=== PATIENT | female | born 1970 | race Caucasian/White ===

== ENCOUNTER 2017-09-02 07:49 | Emergency (ER) | payer BC, OTHER ==
[2017-09-02 07:58] VITALS: BP 170/91
[2017-09-02] MEDS ORDERED: LIDOCAINE VISCOUS 2% PO ONE (10:50)
--- NOTE | 2017-09-02 10:55 | Emergency Department Report ---
ED ENT HPI - General Chief complaint: Sore Throat Stated complaint: SORE THROAT Time Seen by Provider: 09/02/17 10:10 Source: patient Mode of arrival: Ambulatory Limitations: No Limitations - History of Present Illness Initial comments: This is a 47-year-old female nontoxic, well nourished in appearance, no acute signs of distress presents to the ED with c/o of sore throat and body aches x5 days. Patient denies any recent travels. Patient describes pain as aching with level of 8/10. Patient denies any fever, chills, cough, wheezing, headache, stiff neck, drooling, hoarseness, difficult swallowing, chest pain, shortness of breath, difficulty breathing, nausea, vomiting, numbness or tingling. Patient denies any allergies. Past medical history includes hypertension and asthma. MD complaint: sore throat -: days(s) (5) Location: throat Severity: mild Severity scale (0 -10): 8 Quality: aching Consistency: constant Improves with: none Worsens with: swallowing Associated Symptoms: pain with swallowing, sore throat. denies: fever, cough, gum swelling, toothache, tinnitus, hearing loss, discharge from ear, rhinorrhea - Related Data Previous Rx's Medication Instructions Recorded Last Taken Type Lisinopril [Zestril TAB] 20 mg PO QDAY #30 tablet 05/25/13 10/13/14 Rx Acetaminophen with Codeine 1 each PO Q6HR PRN #15 tablet 10/13/14 Unknown Rx [Acetaminophen-Codeine #4 TAB] Lisinopril [Zestril TAB] 40 mg PO QDAY #30 tablet 10/13/14 Unknown Rx Loratadine [Claritin] 10 mg PO DAILY #30 tablet 10/13/14 Unknown Rx Acetaminophen/Codeine [Tylenol #3] 1 tab PO Q6H PRN #15 tab 02/07/15 Unknown Rx Cephalexin [Keflex] 500 mg PO BID #20 capsule 02/07/15 Unknown Rx amLODIPine [Norvasc] 5 mg PO DAILY #30 tab 02/07/15 Unknown Rx Amoxicillin [Amoxicillin TAB] 875 mg PO BID #20 tablet 09/02/17 Unknown Rx Nystas/Diphen/Xyl Visc/Mylanta 15 ml MM Q6H 20 Days udc 09/02/17 Unknown Rx [Magic Mouthwash] Allergies Allergy/AdvReac Type Severity Reaction Status Date / Time No Known Allergies Allergy Verified 09/06/14 12:39 ED Dental HPI - General Chief complaint: Sore Throat Stated complaint: SORE THROAT Time Seen by Provider: 09/02/17 10:10 Source: patient Mode of arrival: Ambulatory Limitations: No Limitations - Related Data Previous Rx's Medication Instructions Recorded Last Taken Type Lisinopril [Zestril TAB] 20 mg PO QDAY #30 tablet 05/25/13 10/13/14 Rx Acetaminophen with Codeine 1 each PO Q6HR PRN #15 tablet 10/13/14 Unknown Rx [Acetaminophen-Codeine #4 TAB] Lisinopril [Zestril TAB] 40 mg PO QDAY #30 tablet 10/13/14 Unknown Rx Loratadine [Claritin] 10 mg PO DAILY #30 tablet 10/13/14 Unknown Rx Acetaminophen/Codeine [Tylenol #3] 1 tab PO Q6H PRN #15 tab 02/07/15 Unknown Rx Cephalexin [Keflex] 500 mg PO BID #20 capsule 02/07/15 Unknown Rx amLODIPine [Norvasc] 5 mg PO DAILY #30 tab 02/07/15 Unknown Rx Amoxicillin [Amoxicillin TAB] 875 mg PO BID #20 tablet 09/02/17 Unknown Rx Nystas/Diphen/Xyl Visc/Mylanta 15 ml MM Q6H 20 Days udc 09/02/17 Unknown Rx [Magic Mouthwash] Allergies Allergy/AdvReac Type Severity Reaction Status Date / Time No Known Allergies Allergy Verified 09/06/14 12:39 ED Review of Systems ROS: Stated complaint: SORE THROAT Other details as noted in HPI Constitutional: denies: chills, fever Eyes: denies: eye pain, eye discharge, vision change ENT: throat pain. denies: ear pain Respiratory: denies: cough, shortness of breath, wheezing Cardiovascular: denies: chest pain, palpitations Endocrine: no symptoms reported Gastrointestinal: denies: abdominal pain, nausea, diarrhea Genitourinary: denies: urgency, dysuria, discharge Musculoskeletal: denies: back pain, joint swelling, arthralgia Skin: denies: rash, lesions Neurological: denies: headache, weakness, paresthesias Psychiatric: denies: anxiety, depression Hematological/Lymphatic: denies: easy bleeding, easy bruising ED Past Medical Hx - Past Medical History Hx Hypertension: Yes Hx Asthma: Yes - Surgical History Past Surgical History?: No Additional Surgical History: rt lumpectomy breast benign - Social History Smoking Status: Never Smoker Substance Use Type: None - Medications Home Medications: Home Medications Medication Instructions Recorded Confirmed Last Taken Type Lisinopril [Zestril TAB] 20 mg PO QDAY #30 tablet 05/25/13 10/13/14 10/13/14 Rx Acetaminophen with Codeine 1 each PO Q6HR PRN #15 tablet 10/13/14 Unknown Rx [Acetaminophen-Codeine #4 TAB] Lisinopril [Zestril TAB] 40 mg PO QDAY #30 tablet 10/13/14 Unknown Rx Loratadine [Claritin] 10 mg PO DAILY #30 tablet 10/13/14 Unknown Rx Acetaminophen/Codeine [Tylenol #3] 1 tab PO Q6H PRN #15 tab 02/07/15 Unknown Rx Cephalexin [Keflex] 500 mg PO BID #20 capsule 02/07/15 Unknown Rx amLODIPine [Norvasc] 5 mg PO DAILY #30 tab 02/07/15 Unknown Rx Amoxicillin [Amoxicillin TAB] 875 mg PO BID #20 tablet 09/02/17 Unknown Rx Nystas/Diphen/Xyl Visc/Mylanta 15 ml MM Q6H 20 Days udc 09/02/17 Unknown Rx [Magic Mouthwash] ED Physical Exam - General Limitations: No Limitations General appearance: alert, in no apparent distress - Head Head exam: Present: atraumatic, normocephalic, normal inspection - Eye Eye exam: Present: normal appearance, PERRL, EOMI. Absent: scleral icterus, conjunctival injection, nystagmus, periorbital swelling, periorbital tenderness Pupils: Present: normal accommodation - ENT ENT exam: Present: mucous membranes moist, TM's normal bilaterally, normal external ear exam - Expanded ENT Exam Expanded Ear exam: Present: normal external inspection Mouth exam: Present: normal external inspection, tongue normal. Absent: drooling, trismus, muffled voice, tongue elevation, laceration Teeth exam: Present: normal inspection Throat exam: Positive: tonsillar erythema, tonsillomegaly (2+), tonsillar exudate, other (No abscess or swelling noted). Negative: R peritonsillar mass, L peritonsillar mass - Neck Neck exam: Present: normal inspection, full ROM. Absent: tenderness, meningismus, lymphadenopathy, thyromegaly - Respiratory Respiratory exam: Present: normal lung sounds bilaterally. Absent: respiratory distress, wheezes, rales, rhonchi, stridor, chest wall tenderness, accessory muscle use, decreased breath sounds, prolonged expiratory - Cardiovascular Cardiovascular Exam: Present: regular rate, normal rhythm, normal heart sounds. Absent: bradycardia, tachycardia, irregular rhythm, systolic murmur, diastolic murmur, rubs, gallop - GI/Abdominal GI/Abdominal exam: Present: soft, normal bowel sounds. Absent: distended, tenderness, guarding, rebound, rigid, diminished bowel sounds - Rectal Rectal exam: Present: deferred - Extremities Exam Extremities exam: Present: normal inspection, full ROM, normal capillary refill. Absent: tenderness, pedal edema, joint swelling, calf tenderness - Back Exam Back exam: Present: normal inspection, full ROM. Absent: tenderness, CVA tenderness (R), CVA tenderness (L), muscle spasm, paraspinal tenderness, vertebral tenderness, rash noted - Neurological Exam Neurological exam: Present: alert, oriented X3, CN II-XII intact, normal gait, reflexes normal - Psychiatric Psychiatric exam: Present: normal affect, normal mood - Skin Skin exam: Present: warm, dry, intact, normal color. Absent: rash ED Course Vital Signs 09/02/17 07:54 Temperature 98.3 F Pulse Rate 87 Respiratory 20 Rate Blood Pressure 170/91 O2 Sat by Pulse 93 Oximetry - Reevaluation(s) Reevaluation #1: 09/02/17 10:54 Patient is speaking in full sentences with no signs of distress noted. ED Medical Decision Making - Medical Decision Making This is a 47-year-old female that presents with tonsillitis with exudate. Patient is stable and was examined by me. CXR obtained prior to my interview and dictated by radiologist with normal exam. There is no signs of abscess or swelling ntoed. Patient received Lidocaine visous in the ED which patient stated symptoms are improving and subsiding. Patient is discharge with amox. Patient was instructed to Follow-up with a primary care doctor in 3-5 days or if symptoms worsen and continue return to emergency room as soon as possible. At time time of discharge, the patient does not seem toxic or ill in appearance. No acute signs of distress noted. Patient agrees to discharge treatment plan of care. No further questions noted by the patient. Critical care attestation.: If time is entered above; I have spent that time in minutes in the direct care of this critically ill patient, excluding procedure time. ED Disposition Clinical Impression: Tonsillitis with exudate Disposition: TO HOME OR SELFCARE Is pt being admited?: No Does the pt Need Aspirin: No Condition: Stable Instructions: Amoxicillin (By mouth), Tonsillitis (ED) Additional Instructions: Follow-up with a primary care doctor in 3-5 days or if symptoms worsen and continue return to emergency room as soon as possible. Prescriptions: Amoxicillin [Amoxicillin TAB] 875 mg PO BID #20 tablet Nystas/Diphen/Xyl Visc/Mylanta [Magic Mouthwash] 15 ml MM Q6H 20 Days [facility] [place] Referrals: KASSI OCAMPO MD [Primary Care Provider] - 3-5 Days ELDON SWEET MD [Staff Physician] - 3-5 Days [facility] [Outside] - 3-5 Days Forms: Work/School Release Form(ED)
--- NOTE | 2017-09-02 11:32 | XRay Report ---
XRAY CHEST TWO VIEWS: 09/02/17 07:49:00 CLINICAL: Cough. COMPARISON: None FINDINGS: Normal heart and pulmonary vasculature. The lungs are normally expanded and clear.The bones and soft tissues are unremarkable. IMPRESSION: Normal chest.
== END 2017-09-02 11:47 | disposition home or self-care (01) ==
LOC: ED 07:49
DX: J03.90 Acute tonsillitis, unspecified (principal); I10 Essential (primary) hypertension; J45.909 Unspecified asthma, uncomplicated
CPT/HCPCS: 71020; 87116; 87400; 87430

== ENCOUNTER 2019-05-25 09:23 | Emergency (ER) | payer OTHER ==
[2019-05-25] MEDS ORDERED: DUONEB *Not for PRN Use IH ONE (09:27)
[2019-05-25] MEDS ORDERED: ATROVENT IH ONE ×2 (09:56→09:59)
[2019-05-25] MEDS ORDERED: PROVENTIL IH ONE ×2 (09:56→09:59)
[2019-05-25] MEDS ORDERED: SOLU-Medrol IV ONE (09:57)
[2019-05-25] MEDS ORDERED: NORVASC PO ONE (09:58)
[2019-05-25] MEDS ORDERED: TORADOL IVP ONE (10:01)
[2019-05-25] MEDS ORDERED: NACL 0.9% 1000 ML 1,000 ML IV ONE (10:01)
--- NOTE | 2019-05-25 10:01 | Emergency Department Report ---
ED General Adult HPI - General Chief complaint: Adult Asthma Stated complaint: CHEST TIGHT/SOB Time Seen by Provider: 05/25/19 09:55 Source: patient Mode of arrival: Ambulatory Limitations: No Limitations - History of Present Illness Initial comments: Patient complains of a cough and shortness of breath for the last couple of days. Patient states that she has asthma and this feels like one of her exacerbations. Patient states she has chest pain with coughing but otherwise no chest pain. On initial presentation the blood pressure is elevated at 228/132. Patient endorses a history of hypertension and states she takes lisinopril for history of hypertension and Marti took her medication this morning. Patient denies yoav chest pain, abdominal pain, headache. -: Gradual, days(s) (2) Location: chest Consistency: constant Improves with: none Worsens with: none Associated Symptoms: denies other symptoms Treatments Prior to Arrival: none - Related Data Previous Rx's Medication Instructions Recorded Last Taken Type Lisinopril [Zestril TAB] 20 mg PO QDAY #30 tablet 05/25/13 10/13/14 Rx Acetaminophen with Codeine 1 each PO Q6HR PRN #15 tablet 10/13/14 Unknown Rx [Acetaminophen-Codeine #4 TAB] Lisinopril [Zestril TAB] 40 mg PO QDAY #30 tablet 10/13/14 Unknown Rx Loratadine [Claritin] 10 mg PO DAILY #30 tablet 10/13/14 Unknown Rx Acetaminophen/Codeine [Tylenol #3] 1 tab PO Q6H PRN #15 tab 02/07/15 Unknown Rx amLODIPine [Norvasc] 5 mg PO DAILY #30 tab 02/07/15 Unknown Rx cephALEXin [Keflex] 500 mg PO BID #20 capsule 02/07/15 Unknown Rx Amoxicillin [Amoxicillin TAB] 875 mg PO BID #20 tablet 09/02/17 Unknown Rx Nystas/Diphen/Xyl Visc/Mylanta 15 ml MM Q6H 20 Days udc 09/02/17 Unknown Rx [Magic Mouthwash] ALBUTEROL Inhaler (OR & NICU) 2 puff IH Q4HR PRN #1 inhalation 05/25/19 Unknown Rx [ProAir HFA Inhaler] Albuterol Sulfate [Albuterol 0.63% 0.63 mg IH Q4HR PRN #30 ml 05/25/19 Unknown Rx NEBS] Benzonatate [Tessalon Perles] 100 mg PO Q8HR PRN #20 capsule 05/25/19 Unknown Rx Codeine Phosphate/Guaifenesin 180 ml PO Q12HR PRN #180 liquid 05/25/19 Unknown Rx [Guaifenesin-Codeine Syrup] Naproxen [Naprosyn] 500 mg PO BID PRN #20 tablet 05/25/19 Unknown Rx Nebulizer [Truneb Nebulizer] 1 each MC Q4HR #1 each 05/25/19 Unknown Rx Allergies Allergy/AdvReac Type Severity Reaction Status Date / Time No Known Allergies Allergy Verified 09/06/14 12:39 ED Review of Systems ROS: Stated complaint: CHEST TIGHT/SOB Other details as noted in HPI Comment: All other systems reviewed and negative Constitutional: denies: chills, fever Eyes: denies: eye pain, eye discharge, vision change ENT: denies: ear pain, throat pain Respiratory: shortness of breath. denies: cough, wheezing Cardiovascular: denies: chest pain, palpitations Endocrine: no symptoms reported Gastrointestinal: denies: abdominal pain, nausea, diarrhea Genitourinary: denies: urgency, dysuria, discharge Musculoskeletal: denies: back pain, joint swelling, arthralgia Skin: denies: rash, lesions Neurological: denies: headache, weakness, paresthesias Psychiatric: denies: anxiety, depression Hematological/Lymphatic: denies: easy bleeding, easy bruising ED Past Medical Hx - Past Medical History Previous Medical History?: Yes Hx Hypertension: Yes Hx Asthma: Yes - Surgical History Past Surgical History?: Yes Additional Surgical History: Right lumpectomy breast benign - Social History Smoking Status: Never Smoker Substance Use Type: None - Medications Home Medications: Home Medications Medication Instructions Recorded Confirmed Last Taken Type Lisinopril [Zestril TAB] 20 mg PO QDAY #30 tablet 05/25/13 10/13/14 10/13/14 Rx Acetaminophen with Codeine 1 each PO Q6HR PRN #15 tablet 10/13/14 Unknown Rx [Acetaminophen-Codeine #4 TAB] Lisinopril [Zestril TAB] 40 mg PO QDAY #30 tablet 10/13/14 Unknown Rx Loratadine [Claritin] 10 mg PO DAILY #30 tablet 10/13/14 Unknown Rx Acetaminophen/Codeine [Tylenol #3] 1 tab PO Q6H PRN #15 tab 02/07/15 Unknown Rx amLODIPine [Norvasc] 5 mg PO DAILY #30 tab 02/07/15 Unknown Rx cephALEXin [Keflex] 500 mg PO BID #20 capsule 02/07/15 Unknown Rx Amoxicillin [Amoxicillin TAB] 875 mg PO BID #20 tablet 09/02/17 Unknown Rx Nystas/Diphen/Xyl Visc/Mylanta 15 ml MM Q6H 20 Days udc 09/02/17 Unknown Rx [Magic Mouthwash] ALBUTEROL Inhaler (OR & NICU) 2 puff IH Q4HR PRN #1 inhalation 05/25/19 Unknown Rx [ProAir HFA Inhaler] Albuterol Sulfate [Albuterol 0.63% 0.63 mg IH Q4HR PRN #30 ml 05/25/19 Unknown Rx NEBS] Benzonatate [Tessalon Perles] 100 mg PO Q8HR PRN #20 capsule 05/25/19 Unknown Rx Codeine Phosphate/Guaifenesin 180 ml PO Q12HR PRN #180 liquid 05/25/19 Unknown Rx [Guaifenesin-Codeine Syrup] Naproxen [Naprosyn] 500 mg PO BID PRN #20 tablet 05/25/19 Unknown Rx Nebulizer [Truneb Nebulizer] 1 each MC Q4HR #1 each 05/25/19 Unknown Rx ED Physical Exam - General Limitations: No Limitations General appearance: alert, in no apparent distress - Head Head exam: Present: atraumatic, normocephalic - Eye Eye exam: Present: normal appearance, PERRL, EOMI - ENT ENT exam: Present: mucous membranes moist - Neck Neck exam: Present: normal inspection - Respiratory Respiratory exam: Present: respiratory distress (mild respiratory distress with diminished breath sounds throughout) - Cardiovascular Cardiovascular Exam: Present: regular rate, normal rhythm. Absent: systolic murmur, diastolic murmur, rubs, gallop - GI/Abdominal GI/Abdominal exam: Present: soft, normal bowel sounds. Absent: distended, tenderness - Extremities Exam Extremities exam: Present: normal inspection - Back Exam Back exam: Present: normal inspection - Neurological Exam Neurological exam: Present: alert, oriented X3, CN II-XII intact. Absent: motor sensory deficit - Psychiatric Psychiatric exam: Present: normal affect, normal mood - Skin Skin exam: Present: warm, dry, intact, normal color. Absent: rash ED Course Vital Signs 05/25/19 05/25/19 05/25/19 09:28 09:58 10:31 Temperature 98.4 F Pulse Rate 89 95 H Pulse Rate [ 86 Posterior Bilateral Throughout] Respiratory 24 20 Rate Respiratory 22 Rate [Posterior Bilateral Throughout] Blood Pressure 228/132 196/111 Blood Pressure [Left] O2 Sat by Pulse 94 98 Oximetry 05/25/19 05/25/19 05/25/19 10:36 10:40 10:46 Temperature Pulse Rate 88 93 H 97 H Pulse Rate [ Posterior Bilateral Throughout] Respiratory 20 19 20 Rate Respiratory Rate [Posterior Bilateral Throughout] Blood Pressure 196/111 196/111 196/111 Blood Pressure [Left] O2 Sat by Pulse 100 100 99 Oximetry 05/25/19 05/25/19 05/25/19 10:50 10:56 11:00 Temperature Pulse Rate 94 H 96 H 100 H Pulse Rate [ Posterior Bilateral Throughout] Respiratory 20 18 19 Rate Respiratory Rate [Posterior Bilateral Throughout] Blood Pressure 196/111 196/111 196/111 Blood Pressure [Left] O2 Sat by Pulse 99 100 100 Oximetry 05/25/19 05/25/19 05/25/19 11:06 11:07 11:12 Temperature Pulse Rate 100 H 99 H Pulse Rate [ 110 H Posterior Bilateral Throughout] Respiratory 25 H 20 Rate Respiratory 20 Rate [Posterior Bilateral Throughout] Blood Pressure 198/105 Blood Pressure 198/105 [Left] O2 Sat by Pulse 99 Oximetry 05/25/19 05/25/19 11:20 11:30 Temperature Pulse Rate 107 H 107 H Pulse Rate [ Posterior Bilateral Throughout] Respiratory 22 24 Rate Respiratory Rate [Posterior Bilateral Throughout] Blood Pressure 198/105 198/105 Blood Pressure [Left] O2 Sat by Pulse 95 92 Oximetry ED Medical Decision Making - Lab Data Result diagrams: 05/25/19 10:02 05/25/19 10:02 Lab Results 05/25/19 05/25/19 Range/Units 10:02 10:02 WBC 6.1 (4.5-11.0) K/mm3 RBC 4.81 (3.65-5.03) M/mm3 Hgb 14.0 (10.1-14.3) gm/dl Hct 41.1 (30.3-42.9) % MCV 86 (79-97) fl MCH 29 (28-32) pg MCHC 34 (30-34) % RDW 14.8 (13.2-15.2) % Plt Count 335 (140-440) K/mm3 Lymph % (Auto) 50.7 H (13.4-35.0) % Coke % (Auto) 8.1 H (0.0-7.3) % Eos % (Auto) 2.2 (0.0-4.3) % Baso % (Auto) 0.8 (0.0-1.8) % Lymph # 3.1 (1.2-5.4) K/mm3 Coke # 0.5 (0.0-0.8) K/mm3 Eos # 0.1 (0.0-0.4) K/mm3 Baso # 0.1 (0.0-0.1) K/mm3 Seg Neutrophils % 38.2 L (40.0-70.0) % Seg Neutrophils # 2.3 (1.8-7.7) K/mm3 Sodium 138 (137-145) mmol/L Potassium 3.3 L (3.6-5.0) mmol/L Chloride 99.6 (98-107) mmol/L Carbon Dioxide 27 (22-30) mmol/L Anion Gap 15 mmol/L BUN 15 (7-17) mg/dL Creatinine 0.8 (0.7-1.2) mg/dL Estimated GFR > 60 ml/min BUN/Creatinine Ratio 19 % Glucose 107 H (65-100) mg/dL Calcium 9.3 (8.4-10.2) mg/dL - Radiology Data Radiology results: report reviewed - Medical Decision Making Patient improved dramatically after a standard DuoNeb breathing treatment and a continuous 1 hour treatment with IV magnesium and steroids. Critical Care Time: Yes Critical care time in (mins) excluding proc time.: 35 Critical care attestation.: If time is entered above; I have spent that time in minutes in the direct care of this critically ill patient, excluding procedure time. ED Disposition Clinical Impression: Asthma, Asthma attack Disposition: DC-01 TO HOME OR SELFCARE Is pt being admited?: No Does the pt Need Aspirin: No Condition: Stable Instructions: Asthma (ED) Additional Instructions: return if worse Prescriptions: Albuterol Sulfate [Albuterol 0.63% NEBS] 0.63 mg IH Q4HR PRN #30 ml PRN Reason: Wheezing Codeine Phosphate/Guaifenesin [Guaifenesin-Codeine Syrup] 180 ml PO Q12HR PRN #180 liquid PRN Reason: pain Naproxen [Naprosyn] 500 mg PO BID PRN #20 tablet PRN Reason: pain ALBUTEROL Inhaler (OR & NICU) [ProAir HFA Inhaler] 2 puff IH Q4HR PRN #1 inhalation PRN Reason: Shortness Of Breath Benzonatate [Tessalon Perles] 100 mg PO Q8HR PRN #20 capsule PRN Reason: Cough Nebulizer [Truneb Nebulizer] 1 each MC Q4HR #1 each Referrals: ASIM WOODS MD [Primary Care Provider] - 3-5 Days [facility] [Provider Group] - 3-5 Days [facility] [Provider Group] - 3-5 Days Time of Disposition: 12:49
[2019-05-25 10:20] LABS: Basophils # (Auto) 0.1 K/mm3 (0.0-0.1); Basophils % (Auto) 0.8 % (0.0-1.8); Eosinophils # (Auto) 0.1 K/mm3 (0.0-0.4); Eosinophils % (Auto) 2.2 % (0.0-4.3); Hematocrit 41.1 % (30.3-42.9); Lymphocytes # (Auto) 3.1 K/mm3 (1.2-5.4); Lymphocytes % (Auto) 50.7 % (13.4-35.0); Mean Corpuscular HGB Conc 34 % (30-34); Mean Corpuscular Volume 86 fl (79-97); Monocytes # (Auto) 0.5 K/mm3 (0.0-0.8); Monocytes % (Auto) 8.1 % (0.0-7.3); Platelet Count 335 K/mm3 (140-440); Red Blood Count 4.81 M/mm3 (3.65-5.03); Red Cell Distribution Width 14.8 % (13.2-15.2)
[2019-05-25 10:30] LABS: BUN/Creatinine Ratio 19; Blood Urea Nitrogen 15 mg/dL (7-17); Calcium 9.3 mg/dL (8.4-10.2); Hemolysis Index 5
[2019-05-25] MEDS ORDERED: MAGNESIUM SULFATE 1 GM in NACL 0.9% 50 ML IV ONE (11:00)
[2019-05-25 11:08] VITALS: BP 198/105
[2019-05-25] MEDS ORDERED: MAGNESIUM SULFATE 2GM/50ML 2 GM/50 ML BAG IV ONE ×2 (11:11→11:12)
--- NOTE | 2019-05-25 11:14 | XRay Report ---
CHEST 1 VIEW, 05/25/2019 10:14 AM CLINICAL INFORMATION/INDICATION: Cough COMPARISON: Chest radiograph, 09/02/2017 FINDINGS: SUPPORT DEVICES: None HEART: The cardiac silhouette is normal in size. LUNGS/PLEURA: There is no focal airspace disease or significant pleural effusion. ADDITIONAL FINDINGS: No additional acute findings. IMPRESSION: 1. No evidence of acute cardiopulmonary process. Signer Name: Laina Bejarano MD Signed: 05/25/2019 11:09 AM Workstation Name: [id number]
[2019-05-25] MEDS ORDERED: ROBITUSSIN AC PO PRN (11:27)
== END 2019-05-25 13:15 | disposition home or self-care (01) ==
LOC: ED 09:23
DX: J45.909 Unspecified asthma, uncomplicated (principal); I10 Essential (primary) hypertension; Z90.11 Acquired absence of right breast and nipple; Z79.899 Other long term (current) drug therapy
CPT/HCPCS: 36415; 71045; 80048; 85025; 94640; 96365; 96375; 99291; J1885; J2930; J3475; J7030; 94644

== ENCOUNTER 2019-07-20 12:05 | Emergency (ER) | payer OTHER ==
--- NOTE | 2019-07-20 12:11 | Emergency Department Report ---
Blank Doc - Documentation Documentation: 48-year-old female that presents with right ankle pain. Denies any other inju diana or pain. This initial assessment/diagnostic orders/clinical plan/treatment(s) is/are subject to change based on patient's health status, clinical progression and re- assessment by fellow clinical providers in the ED. Further treatment and workup at subsequent clinical providers discretion. Patient/guardians urged not to elope from the ED as their condition may be serious if not clinically assessed and managed. Initial orders include: 1- Patient sent to [facility] for further evaluation and treatment 2- xrays
--- NOTE | 2019-07-20 12:46 | XRay Report ---
EXAMINATION: Right ankle radiograph, 3 views, 07/20/2019 CLINICAL INFORMATION: Right ankle pain after trauma COMPARISON: None. FINDINGS: There is mild generalized soft tissue swelling of the right ankle without evidence of acute fracture or dislocation. Signer Name: Laina Bejarano MD Signed: 07/20/2019 12:42 PM Workstation Name: [id number]
[2019-07-20] MEDS ORDERED: IBUPROFEN 800 MG TAB PO ONE (13:08)
--- NOTE | 2019-07-20 13:10 | Emergency Department Report ---
ED Lower Extremity HPI - General Chief Complaint: Extremity Injury, Lower Stated Complaint: RT ANKLE FALL INJURY/PAIN Time Seen by Provider: 07/20/19 12:10 Source: patient Mode of arrival: Wheelchair Limitations: No Limitations - History of Present Illness Initial Comments: 48-year-old female presents to ED with right ankle pain. Patient states she sli pped and fell on the grass. States she felt something pop in her right ankle. MD Complaint: ankle injury -: This afternoon Injury: Ankle: Right Severity: moderate Improves With: immobilization Worsens With: weight bearing Context: fall Associated Symptoms: snap/pop sensation, swelling, unable to bear weight - Related Data Previous Rx's Medication Instructions Recorded Last Taken Type Lisinopril [Zestril TAB] 20 mg PO QDAY #30 tablet 05/25/13 10/13/14 Rx Acetaminophen with Codeine 1 each PO Q6HR PRN #15 tablet 10/13/14 Unknown Rx [Acetaminophen-Codeine #4 TAB] Lisinopril [Zestril TAB] 40 mg PO QDAY #30 tablet 10/13/14 Unknown Rx Loratadine [Claritin] 10 mg PO DAILY #30 tablet 10/13/14 Unknown Rx Acetaminophen/Codeine [Tylenol #3] 1 tab PO Q6H PRN #15 tab 02/07/15 Unknown Rx amLODIPine 5 mg PO DAILY #30 tab 02/07/15 Unknown Rx cephALEXin [Keflex] 500 mg PO BID #20 capsule 02/07/15 Unknown Rx Amoxicillin [Amoxicillin TAB] 875 mg PO BID #20 tablet 09/02/17 Unknown Rx Nystas/Diphen/Xyl Visc/Mylanta 15 ml MM Q6H 20 Days udc 09/02/17 Unknown Rx [Magic Mouthwash] ALBUTEROL Inhaler (OR & NICU) 2 puff IH Q4HR PRN #1 inhalation 05/25/19 Unknown Rx [ProAir HFA Inhaler] Albuterol Sulfate [Albuterol 0.63% 0.63 mg IH Q4HR PRN #30 ml 05/25/19 Unknown Rx NEBS] Benzonatate [Tessalon Perles] 100 mg PO Q8HR PRN #20 capsule 05/25/19 Unknown Rx Codeine Phosphate/Guaifenesin 180 ml PO Q12HR PRN #180 liquid 05/25/19 Unknown Rx [Guaifenesin-Codeine Syrup] Naproxen [Naprosyn] 500 mg PO BID PRN #20 tablet 05/25/19 Unknown Rx Nebulizer [Truneb Nebulizer] 1 each MC Q4HR #1 each 05/25/19 Unknown Rx predniSONE [Deltasone] 20 mg PO DAILY #15 tablet 05/25/19 Unknown Rx Naproxen [Naprosyn] 500 mg PO BID #20 tablet 07/20/19 Unknown Rx traMADol [Ultram] 50 mg PO Q6HR PRN #7 tablet 07/20/19 Unknown Rx Allergies Allergy/AdvReac Type Severity Reaction Status Date / Time No Known Allergies Allergy Verified 07/20/19 12:06 ED Review of Systems ROS: Stated complaint: RT ANKLE FALL INJURY/PAIN Other details as noted in HPI Comment: All other systems reviewed and negative Musculoskeletal: as per HPI Neurological: denies: numbness, paresthesias ED Past Medical Hx - Past Medical History Hx Hypertension: Yes Hx Asthma: Yes - Surgical History Additional Surgical History: Right lumpectomy breast benign - Social History Smoking Status: Never Smoker Substance Use Type: None - Medications Home Medications: Home Medications Medication Instructions Recorded Confirmed Last Taken Type Lisinopril [Zestril TAB] 20 mg PO QDAY #30 tablet 05/25/13 10/13/14 10/13/14 Rx Acetaminophen with Codeine 1 each PO Q6HR PRN #15 tablet 10/13/14 Unknown Rx [Acetaminophen-Codeine #4 TAB] Lisinopril [Zestril TAB] 40 mg PO QDAY #30 tablet 10/13/14 Unknown Rx Loratadine [Claritin] 10 mg PO DAILY #30 tablet 10/13/14 Unknown Rx Acetaminophen/Codeine [Tylenol #3] 1 tab PO Q6H PRN #15 tab 02/07/15 Unknown Rx amLODIPine 5 mg PO DAILY #30 tab 02/07/15 Unknown Rx cephALEXin [Keflex] 500 mg PO BID #20 capsule 02/07/15 Unknown Rx Amoxicillin [Amoxicillin TAB] 875 mg PO BID #20 tablet 09/02/17 Unknown Rx Nystas/Diphen/Xyl Visc/Mylanta 15 ml MM Q6H 20 Days udc 09/02/17 Unknown Rx [Magic Mouthwash] ALBUTEROL Inhaler (OR & NICU) 2 puff IH Q4HR PRN #1 inhalation 05/25/19 Unknown Rx [ProAir HFA Inhaler] Albuterol Sulfate [Albuterol 0.63% 0.63 mg IH Q4HR PRN #30 ml 05/25/19 Unknown Rx NEBS] Benzonatate [Tessalon Perles] 100 mg PO Q8HR PRN #20 capsule 05/25/19 Unknown Rx Codeine Phosphate/Guaifenesin 180 ml PO Q12HR PRN #180 liquid 05/25/19 Unknown Rx [Guaifenesin-Codeine Syrup] Naproxen [Naprosyn] 500 mg PO BID PRN #20 tablet 05/25/19 Unknown Rx Nebulizer [Truneb Nebulizer] 1 each MC Q4HR #1 each 05/25/19 Unknown Rx predniSONE [Deltasone] 20 mg PO DAILY #15 tablet 05/25/19 Unknown Rx Naproxen [Naprosyn] 500 mg PO BID #20 tablet 07/20/19 Unknown Rx traMADol [Ultram] 50 mg PO Q6HR PRN #7 tablet 07/20/19 Unknown Rx ED Physical Exam - General Limitations: No Limitations General appearance: alert, in no apparent distress, obese - Head Head exam: Present: atraumatic, normocephalic - Eye Eye exam: Present: normal appearance - ENT ENT exam: Present: mucous membranes moist - Neck Neck exam: Present: normal inspection - Respiratory Respiratory exam: Present: normal lung sounds bilaterally. Absent: respiratory distress - Cardiovascular Cardiovascular Exam: Present: regular rate, normal rhythm - GI/Abdominal GI/Abdominal exam: Absent: distended - Extremities Exam Extremities exam: Present: normal capillary refill, other (slight bruising to the anterior right lower leg; moderate swelling to the right ankle, with medial and lateral tenderness, patient able to move toes, DP pulses intact) - Neurological Exam Neurological exam: Present: alert, oriented X3. Absent: motor sensory deficit - Psychiatric Psychiatric exam: Present: normal affect, normal mood - Skin Skin exam: Present: warm, dry, intact, normal color ED Course Vital Signs 07/20/19 12:11 Temperature 97.7 F Pulse Rate 94 H Respiratory 18 Rate Blood Pressure 180/93 O2 Sat by Pulse 95 Oximetry ED Lower Extremity MDM - Radiology Data Radiology results: report reviewed, image reviewed - Differential Diagnosis fracture, sprain Critical care attestation.: If time is entered above; I have spent that time in minutes in the direct care of this critically ill patient, excluding procedure time. ED Disposition Clinical Impression: Right ankle sprain Disposition: TO HOME OR SELFCARE Is pt being admited?: No Condition: Stable Instructions: Ankle Sprain (ED), Ankle Stirrup Splint (ED) Prescriptions: Naproxen [Naprosyn] 500 mg PO BID #20 tablet traMADol [Ultram] 50 mg PO Q6HR PRN #7 tablet PRN Reason: Pain Referrals: ASHISH SPARKS MD [Staff Physician] - 3-5 Days Time of Disposition: 13:10
[2019-07-20 14:07] VITALS: BP 159/82
== END 2019-07-20 14:09 | disposition home or self-care (01) ==
LOC: ED 12:05
DX: S93.401A Sprain of unspecified ligament of right ankle, initial encounter (principal); I10 Essential (primary) hypertension; J45.909 Unspecified asthma, uncomplicated; Z79.899 Other long term (current) drug therapy; W01.198A Fall on same level from slipping, tripping and stumbling with subsequent striking against other object, initial encounter; Y93.89 Activity, other specified; Y92.89 Other specified places as the place of occurrence of the external cause; Y99.8 Other external cause status

== ENCOUNTER 2021-06-25 08:51 | Emergency (ER) | payer SELFPAY ==
[2021-06-25] MEDS ORDERED: MORPHINE 2 MG/1 ML INJ IV ONE (09:05)
[2021-06-25] MEDS ORDERED: ONDANSETRON 4 MG/2 ML INJ IV ONE (09:05)
--- NOTE | 2021-06-25 09:15 | Emergency Department Report ---
ED Abdominal Pain HPI - General Chief Complaint: Abdominal Pain Stated Complaint: ABD PAIN Time Seen by Provider: 06/25/21 09:05 Source: patient Mode of arrival: Ambulatory Limitations: No Limitations - History of Present Illness Initial Comments: 50-year-old female, history of hypertension, presents to ED with abdominal pain x2 days. Patient reports one episode of associated emesis. She denies any fever or diarrhea. Patient states pain is stabbing in nature, located in the epigastric area and radiating around to the rest of the abdomen. She denies any sick contacts. MD Complaint: abdominal pain -: days(s) (2) Location: epigastric Radiation: other (Diffusely) Migration to: no migration Severity: moderate Quality: stabbing Consistency: constant Improves With: nothing Worsens With: nothing Associated Symptoms: nausea, vomiting. denies: diarrhea, fever, constipation - Related Data Previous Rx's Medication Instructions Recorded Last Taken Type lisinopriL [Zestril TAB] 20 mg PO QDAY #30 tablet 05/25/13 10/13/14 Rx Acetaminophen with Codeine 1 each PO Q6HR PRN #15 tablet 10/13/14 Unknown Rx [Acetaminophen-Codeine #4 TAB] Loratadine (Nf) [Claritin (Nf)] 10 mg PO DAILY #30 tablet 10/13/14 Unknown Rx lisinopriL [Zestril TAB] 40 mg PO QDAY #30 tablet 10/13/14 Unknown Rx Acetaminophen/Codeine [Tylenol #3] 1 tab PO Q6H PRN #15 tab 02/07/15 Unknown Rx amLODIPine 5 mg PO DAILY #30 tab 02/07/15 Unknown Rx cephALEXin [Keflex] 500 mg PO BID #20 capsule 02/07/15 Unknown Rx Amoxicillin [Amoxicillin TAB] 875 mg PO BID #20 tablet 09/02/17 Unknown Rx Nystas/Diphen/Xyl Visc/Mylanta 15 ml MM Q6H 20 Days udc 09/02/17 Unknown Rx [Magic Mouthwash] Albuterol Mdi (or & Nicu Only) 2 puff IH Q4HR PRN #1 inhalation 05/25/19 Unknown Rx [ProAir HFA Inhaler] Albuterol Sulfate [Albuterol 0.63% 0.63 mg IH Q4HR PRN #30 ml 05/25/19 Unknown Rx NEBS] Benzonatate [Tessalon Perles] 100 mg PO Q8HR PRN #20 capsule 05/25/19 Unknown Rx Codeine Phosphate/Guaifenesin 180 ml PO Q12HR PRN #180 liquid 05/25/19 Unknown Rx [Guaifenesin-Codeine Syrup] Naproxen [Naprosyn] 500 mg PO BID PRN #20 tablet 05/25/19 Unknown Rx Nebulizer [Truneb Nebulizer] 1 each MC Q4HR #1 each 05/25/19 Unknown Rx predniSONE [Deltasone] 20 mg PO DAILY #15 tablet 05/25/19 Unknown Rx Naproxen [Naprosyn] 500 mg PO BID #20 tablet 07/20/19 Unknown Rx traMADoL [Ultram] 50 mg PO Q6HR PRN #7 tablet 07/20/19 Unknown Rx Ciprofloxacin HCl 500 mg PO BID #20 tablet 06/25/21 Unknown Rx Dicyclomine [Bentyl] 20 mg PO QID PRN #20 tablet 06/25/21 Unknown Rx Naproxen [Naprosyn] 500 mg PO BID #20 tablet 06/25/21 Unknown Rx metroNIDAZOLE [Flagyl] 500 mg PO Q12HR #20 tab 06/25/21 Unknown Rx traMADoL [Ultram] 50 mg PO Q6HR PRN #7 tablet 06/25/21 Unknown Rx Allergies Allergy/AdvReac Type Severity Reaction Status Date / Time No Known Allergies Allergy Verified 07/20/19 12:06 ED Review of Systems ROS: Stated complaint: ABD PAIN Other details as noted in HPI Comment: All other systems reviewed and negative Constitutional: denies: chills, fever Gastrointestinal: abdominal pain, nausea, vomiting. denies: diarrhea, constipation ED Past Medical Hx - Past Medical History Previous Medical History?: Yes Hx Hypertension: Yes Hx Asthma: Yes - Surgical History Past Surgical History?: Yes Additional Surgical History: Right lumpectomy breast benign - Social History Smoking Status: Never Smoker Substance Use Type: None - Medications Home Medications: Home Medications Medication Instructions Recorded Confirmed Last Taken Type lisinopriL [Zestril TAB] 20 mg PO QDAY #30 tablet 05/25/13 10/13/14 10/13/14 Rx Acetaminophen with Codeine 1 each PO Q6HR PRN #15 tablet 10/13/14 Unknown Rx [Acetaminophen-Codeine #4 TAB] Loratadine (Nf) [Claritin (Nf)] 10 mg PO DAILY #30 tablet 10/13/14 Unknown Rx lisinopriL [Zestril TAB] 40 mg PO QDAY #30 tablet 10/13/14 Unknown Rx Acetaminophen/Codeine [Tylenol #3] 1 tab PO Q6H PRN #15 tab 02/07/15 Unknown Rx amLODIPine 5 mg PO DAILY #30 tab 02/07/15 Unknown Rx cephALEXin [Keflex] 500 mg PO BID #20 capsule 02/07/15 Unknown Rx Amoxicillin [Amoxicillin TAB] 875 mg PO BID #20 tablet 09/02/17 Unknown Rx Nystas/Diphen/Xyl Visc/Mylanta 15 ml MM Q6H 20 Days udc 09/02/17 Unknown Rx [Magic Mouthwash] Albuterol Mdi (or & Nicu Only) 2 puff IH Q4HR PRN #1 inhalation 05/25/19 Unknown Rx [ProAir HFA Inhaler] Albuterol Sulfate [Albuterol 0.63% 0.63 mg IH Q4HR PRN #30 ml 05/25/19 Unknown Rx NEBS] Benzonatate [Tessalon Perles] 100 mg PO Q8HR PRN #20 capsule 05/25/19 Unknown Rx Codeine Phosphate/Guaifenesin 180 ml PO Q12HR PRN #180 liquid 05/25/19 Unknown Rx [Guaifenesin-Codeine Syrup] Naproxen [Naprosyn] 500 mg PO BID PRN #20 tablet 05/25/19 Unknown Rx Nebulizer [Truneb Nebulizer] 1 each MC Q4HR #1 each 05/25/19 Unknown Rx predniSONE [Deltasone] 20 mg PO DAILY #15 tablet 05/25/19 Unknown Rx Naproxen [Naprosyn] 500 mg PO BID #20 tablet 07/20/19 Unknown Rx traMADoL [Ultram] 50 mg PO Q6HR PRN #7 tablet 07/20/19 Unknown Rx Ciprofloxacin HCl 500 mg PO BID #20 tablet 06/25/21 Unknown Rx Dicyclomine [Bentyl] 20 mg PO QID PRN #20 tablet 06/25/21 Unknown Rx Naproxen [Naprosyn] 500 mg PO BID #20 tablet 06/25/21 Unknown Rx metroNIDAZOLE [Flagyl] 500 mg PO Q12HR #20 tab 06/25/21 Unknown Rx traMADoL [Ultram] 50 mg PO Q6HR PRN #7 tablet 06/25/21 Unknown Rx ED Physical Exam - General Limitations: No Limitations General appearance: alert, in no apparent distress, obese - Head Head exam: Present: atraumatic, normocephalic - Eye Eye exam: Present: normal appearance - ENT ENT exam: Present: mucous membranes moist - Neck Neck exam: Present: normal inspection - Respiratory Respiratory exam: Present: normal lung sounds bilaterally. Absent: respiratory distress - Cardiovascular Cardiovascular Exam: Present: regular rate, normal rhythm - GI/Abdominal GI/Abdominal exam: Present: soft, tenderness (Mild diffuse, worse in the epigastric and LLQ). Absent: distended - Extremities Exam Extremities exam: Present: normal inspection - Neurological Exam Neurological exam: Present: alert, oriented X3 - Psychiatric Psychiatric exam: Present: normal affect, normal mood - Skin Skin exam: Present: warm, dry, intact, normal color ED Course Vital Signs 06/25/21 06/25/21 06/25/21 08:54 09:28 09:42 Temperature 98.0 F Pulse Rate 94 H Respiratory 18 16 18 Rate Blood Pressure 194/100 Blood Pressure [Right] O2 Sat by Pulse 96 99 Oximetry 06/25/21 06/25/21 06/25/21 11:06 11:14 12:02 Temperature 98.9 F 98.0 F Pulse Rate 65 65 67 Respiratory 20 20 16 Rate Blood Pressure 150/77 Blood Pressure 150/77 138/78 [Right] O2 Sat by Pulse 100 100 97 Oximetry - Reevaluation(s) Reevaluation #1: 06/25/21 10:30 RBCs present in patient's UA. Patient reports her period went off last week, but she has been having symptoms nodding off and on since then. ED Medical Decision Making - Lab Data Result diagrams: 06/25/21 09:11 06/25/21 10:21 - EKG Data -: EKG Interpreted by Me EKG shows normal: sinus rhythm, axis, intervals, QRS complexes, ST-T waves Rate: normal - EKG Data Interpretation: no acute changes - Radiology Data Radiology results: report reviewed, image reviewed - Medical Decision Making 50-year-old female presents to ED with abdominal pain. Patient afebrile, WBC is normal. Remainder of labs are unremarkable except mildly elevated AST. Patient initially hypertensive, however vitals improved following pain control. CT scan shows acute diverticulitis without any evidence of abscess or perforation. Patient feels comfortable with discharge at this time. Will discharge with prescription for Cipro and Flagyl. Outpatient follow-up advised with GI. Return precautions given. - Differential Diagnosis Pancreatitis, gastroenteritis, bowel obstruction Critical care attestation.: If time is entered above; I have spent that time in minutes in the direct care of this critically ill patient, excluding procedure time. ED Disposition Clinical Impression: Acute diverticulitis Disposition: HOME / SELF CARE / HOMELESS Is pt being admited?: No Condition: Stable Instructions: Diverticulitis, [id number], Abdominal Pain (ED) Prescriptions: Dicyclomine [Bentyl] 20 mg PO QID PRN #20 tablet PRN Reason: abdominal pain Ciprofloxacin HCl 500 mg PO BID #20 tablet metroNIDAZOLE [Flagyl] 500 mg PO Q12HR #20 tab Naproxen [Naprosyn] 500 mg PO BID #20 tablet traMADoL [Ultram] 50 mg PO Q6HR PRN #7 tablet PRN Reason: Pain Referrals: PRIMARY CARE, [Primary Care Provider] - 3-5 Days [facility] [Provider Group] - 3-5 Days Forms: Work/School Release Form(ED) Time of Disposition: 11:42
[2021-06-25 09:22] LABS: Basophils # (Auto) 0.1 K/mm3 (0.0-0.1); Basophils % (Auto) 0.8 % (0.0-1.8); Eosinophils # (Auto) 0.1 K/mm3 (0.0-0.4); Eosinophils % (Auto) 0.7 % (0.0-4.3); Hematocrit 38.3 % (30.3-42.9); Hemoglobin 13.7 gm/dl (10.1-14.3); Lymphocytes # (Auto) 2.4 K/mm3 (1.2-5.4); Lymphocytes % (Auto) 31.2 % (13.4-35.0); Mean Corpuscular HGB Conc 36 % (30-34); Mean Corpuscular Volume 80 fl (79-97); Monocytes # (Auto) 0.5 K/mm3 (0.0-0.8); Platelet Count 488 K/mm3 (140-440); Red Blood Count 4.76 M/mm3 (3.65-5.03); Red Cell Distribution Width 17.6 % (13.2-15.2)
[2021-06-25 09:31] LABS: Bilirubin,Urine NEG (Negative); Blood,Urine LG (Negative); Color,Urine Yellow (Yellow); Mucus,Urine 2+ /HPF; Protein,Urine <15 mg/dL mg/dL (Negative); Urobilinogen,Urine < 2.0 mg/dL (<2.0)
[2021-06-25 09:45] LABS: Bilirubin,Direct 0.5 mg/dL (0-0.2); Blood Urea Nitrogen 8 mg/dL (7-17); Calcium 8.8 mg/dL (8.4-10.2); Hemolysis Index 1282
[2021-06-25 09:53] LABS: BUN/Creatinine Ratio 11
[2021-06-25 10:22] LABS: Alanine Aminotransferase < 5 units/L (7-56)
--- NOTE | 2021-06-25 10:34 | Cat Scan Report ---
CT ABDOMEN AND PELVIS WITH IV CONTRAST INDICATION: epigastric pain. COMPARISON: None available. TECHNIQUE: All CT scans at this facility use dose modulation, automated exposure control, iterative reconstructi on or weight based dosing, when appropriate, to reduce radiation dose to as low as reasonably achieva ble. FINDINGS: Lung Bases: No significant abnormality. Skeletal System: No acute abnormality. ABDOMEN: Liver: No significant abnormality. Gallbladder: No significant abnormality. Bile Ducts: No significant abnormality. Pancreas: No significant abnormality. Spleen: No significant abnormality. Adrenals: No significant abnormality. Right Kidney: No significant abnormality. Left Kidney: No significant abnormality. Upper GI tract: No significant abnormality. Lymph Nodes: No significant adenopathy. Aorta: No significant abnormality. Additional Findings: No significant abnormality. PELVIS: Colon: There is focal inflammation in the region of mid sigmoid diverticulosis around axial image 15 6. Urinary Bladder and Distal Ureters: No significant abnormality. Appendix: No significant abnormality. Lymph Nodes: No significant adenopathy. Additional Findings: None. IMPRESSION: 1. Acute sigmoid diverticulitis. No free fluid or abscess. Signer Name: Alfredo Maldonado MD Signed: 06/25/2021 10:30 AM Workstation Name: [id number]
[2021-06-25 10:48] LABS: HCG Qualitative,Urine Negative (Negative)
[2021-06-25 12:04] VITALS: BP 138/78
--- NOTE | 2021-06-27 10:55 | Electrocardiograph Report ---
[facility] Test Date: 2021-06-25 Test Time: 09:29:11 Pat Name: GAVIOTA RODRIGUEZ Department: Room: Gender: F Staff Development Coordinator Rn: DAFNE : 1970 Requested By: MULU RUFFIN Order Number: [id number] Reading MD: Cristhian Casillas Measurements Intervals [place] Rate: 72 P: 28 NC: 161 QRS: 55 QRSD: 89 T: 42 QT: 406 QTc: 445 Interpretive Statements Sinus rhythm ST elev, probable normal early repol pattern No previous ECG available for comparison Electronically Signed On 06-27-2021 10:55:27 EDT by Cristhian Casillas
== END 2021-06-25 12:10 | disposition home or self-care (01) ==
LOC: ED 08:51
DX: K57.92 Diverticulitis of intestine, part unspecified, without perforation or abscess without bleeding (principal); I10 Essential (primary) hypertension; J45.909 Unspecified asthma, uncomplicated
CPT/HCPCS: 36415; 74177; 80048; 80076; 81001; 81025; 83690; 84132; 84484; 85025; 93005; 96374; 96375; 99284; J2270; J2405; Q9967